=== PATIENT | male | born 1985 | race Caucasian/White ===

== ENCOUNTER 2021-08-20 11:04 | Emergency (ER) | payer MEDICAID ==
[~2021-08-20] VITALS: Ht 175.3 cm; Wt 95.5 kg
[2021-08-20 11:17] VITALS: BP 129/77
== END 2021-08-20 12:41 | disposition left against medical advice (07) ==
LOC: EMS 11:04
DX: F10.129 Alcohol abuse with intoxication, unspecified (principal); Z53.21 Procedure and treatment not carried out due to patient leaving prior to being seen by health care provider